=== PATIENT | male | born 1990 | race African-American/Black ===

== ENCOUNTER 2020-07-29 14:49 | Emergency (ER) | payer OTHER ==
[2020-07-29] MEDS ORDERED: DUONEB 0.5-3 MG/3 ml Neb IH ONE ×2 (14:59→15:10)
[2020-07-29] MEDS ORDERED: solu-MEDROL 125 MG IV ONE (14:59)
[2020-07-29] MEDS ORDERED: BABY ASPIRIN 81 MG CHEW PO ONE (15:00)
[2020-07-29 15:15] LABS: Absolute Neutrophil Ct (ANC) 3.66 (1.4-6.9); BASOPHIL % 0.4 % (0.0-0.4); Basophil (Absolute #) 0.02 (0-0.4); Eosinophil % 1.1 % (0.00-5.0); Eosinophil (Absolute #) 0.05 (0-0.5); Hematocrit 39.7 % (42-50); Hemoglobin 13.6 gm/dl (12.5-18.0); Lymphocytes % 13.1 % (24.0-44.0); Mean Cell Volume 91.3 fl (78-100); Mean Corpuscular Hemoglobin 31.3 pg (26-32); Mean Corpuscular Hgb Concent. 34.3 g/dl (32-36); Mean Platelet Volume 11.6 fl (7.5-11.0); Monocyte (Absolute #) 0.26 (0.0-1.3); Monocytes % 5.7 % (0.0-12.0); Neutrophil % 79.7 % (36.0-66.0); Platelet Count 89 K/mm3 (150-450); Red Blood Count 4.35 M/mm3 (4.1-5.6); Red Cell Distribution Width 13.1 % (11.5-14.0); White Blood Count 4.6 K/mm3 (4.0-10.5)
[2020-07-29] MEDS ORDERED: BABY ASPIRIN 81 MG CHEW ONE (15:20)
[2020-07-29] MEDS ORDERED: solu-MEDROL 125 MG ONE (15:20)
--- NOTE | 2020-07-29 15:24 | XRAY ---
Indication: Chest pain. Comparison: None Portable apical lordotic chest demonstrates normal heart, lungs, and bony thorax.
[2020-07-29 15:36] LABS: ALBUMIN 3.8 g/dL (3.5-5.0); ALKALINE PHOSPHATASE 48 U/L (38-126); ANION GAP 11.6 MEQ/L (5-15); BLOOD UREA NITROGEN 5 mg/dL (9-20); CHLORIDE 102 mmol/L (98-107); Calcium 8.8 mg/dL (8.4-10.2); Carbon Dioxide 27 mmol/L (22-30); Creatinine 1 0.94 mg/dL (0.66-1.25); EST GLOMERULAR FILTRATION RATE > 60.0 ML/MIN; Glucose 85 mg/dL (74-106); NT PRO BNP 52.5 pg/mL (0-450); Potassium 3.2 mmol/L (3.5-5.1); SGOT/AST 36 U/L (17-59); SGPT/ALT 17 U/L (0-50); SODIUM 138 mmol/L (137-145); Total Protein 6.8 g/dL (6.3-8.2)
--- NOTE | 2020-07-29 15:38 | ERPHSYRPT ---
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 no edema noted , chest clear. Physician History: 30 years old healthy male presented in the ER with chief complaint of substernal chest tightness and pressure since yesterday. 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 Patient reports continuous pain since last night and is progressively worsening and hurts to take a deep breath especially in the center. No shortness of breath. No fever chills or cough reported. No history of CAD or chest pain in the past. Timing/Duration: day(s) (1), gradual onset, worse Activities at Onset: rest Quality: fullness, tightness Location: substernal Chest Pain Radiation: no radiation Severity of Pain-Max: moderate Severity of Pain-Current: moderate Modifying Factors: Improves With: other (dust) Associated Symptoms: No shortness of breath, No cough Prior Chest Pain/Cardiac Workup: no prior chest pain Nitro Today/Relief: no nitro taken today Aspirin Treatment Today: no aspirin today Allergies/Adverse Reactions: No Known Drug Allergies Allergy (Unverified 07/29/20 14:59) Hx Influenza Vaccination/Date Given: No Hx Pneumococcal Vaccination/Date Given: No Immunizations Up to Date: No Travel Risk - International Travel Have you traveled outside of the country in past 3 weeks: No - Coronavirus Screening Are you exhibiting any of the following symptoms?: No Close contact with a COVID-19 positive Pt in past 14-21 Days: No - Review of Systems Constitutional: No Symptoms Eyes: No Symptoms Ears, Nose, & Throat: No Symptoms Respiratory: No Symptoms Cardiac: Chest Pain Abdominal/Gastrointestinal: No Symptoms Genitourinary Symptoms: No Symptoms Musculoskeletal: No Symptoms Skin: No Symptoms Neurological: No Symptoms Psychological: No Symptoms Endocrine: No Symptoms Hematologic/Lymphatic: No Symptoms Immunological/Allergic: No Symptoms - Past Medical History Pertinent Past Medical History: No - Past Surgical History Past Surgical History: No - Social History Smoking Status: Current every day smoker Exposure to second hand smoke: Yes Drug Use: none Patient Lives Alone: No - Nursing Vital Signs Nursing Vital Signs: Initial Vital Signs Temperature 99.1 F 07/29/20 14:51 Pulse Rate 86 07/29/20 14:51 Respiratory Rate 18 07/29/20 14:51 Blood Pressure 139/83 07/29/20 14:51 O2 Sat by Pulse Oximetry 99 07/29/20 14:51 Pain Scale Pain Intensity 7 - Physical Exam General Appearance: no apparent distress, alert Eye Exam: PERRL/EOMI Ears, Nose, Throat Exam: normal ENT inspection, TMs normal, pharynx normal Neck Exam: normal inspection, non-tender, supple, full range of motion Respiratory Exam: normal breath sounds, wheezing, No chest tenderness, No respiratory distress, No crackles/rales Cardiovascular Exam: regular rate/rhythm, normal heart sounds Gastrointestinal/Abdomen Exam: soft, normal bowel sounds Back Exam: normal inspection, normal range of motion Extremity Exam: normal inspection, normal range of motion, No yelena's sign Neurologic Exam: alert, oriented x 3, cooperative Skin Exam: normal color SpO2 Interpretation: normal SpO2: 99 O2 Delivery: Room Air - Course EKG Interpreted by Me: RATE (90), Sinus Rhythm, NORMAL AXIS, NORMAL INTERVALS, Non-specific ST Changes, Other (Early repolarization) Ordered Tests: Active Orders 24 hr Category Date Time Status [facility] Professional STAT Care 07/29/20 14:59 Active EKG-ER Only STAT Care 07/29/20 14:59 Active IV Insertion STAT Care 07/29/20 14:59 Active Oxygen-ED Only Nasal Cannula 2 lpm Care 07/29/20 14:59 Active CHEST 1 VIEW (PORTABLE) Stat Exams 07/29/20 14:59 Completed CHEST WITH CONTRAST [CT] Stat Exams 07/29/20 16:09 Completed CBC W DIFF Stat Lab 07/29/20 15:00 Completed CMP Stat Lab 07/29/20 15:00 Completed D-DIMER QUANTITATIVE Stat Lab 07/29/20 15:46 Completed NT PRO BNP Stat Lab 07/29/20 15:00 Completed TROPONIN Q3H Lab 07/29/20 15:00 Completed TROPONIN Q3H Lab 07/29/20 17:46 Received TROPONIN Q3H Lab 07/29/20 21:00 Ordered TROPONIN Q3H Lab 07/30/20 00:00 Ordered TROPONIN Q3H Lab 07/30/20 03:00 Ordered Respiratory Therapy Assessment DAILY RT 07/29/20 15:40 Completed Medication Summary Discontinued Medications Generic Name Dose Route Start Last Admin Trade Name Tasha PRN Reason Stop Dose Admin Albuterol/Ipratropium 3 ml 07/29/20 14:59 07/29/20 15:10 Duoneb 0.5-3 Mg/3 Ml Neb IH 07/29/20 15:00 3 ml STAT ONE Administration Albuterol/Ipratropium Confirm 07/29/20 15:10 Duoneb 0.5-3 Mg/3 Ml Neb Administered 07/29/20 15:11 Dose 3 ml IH .STK-MED ONE Aspirin 324 mg 07/29/20 15:00 07/29/20 15:21 Baby Aspirin 81 Mg Chew PO 07/29/20 15:01 324 mg STAT ONE Administration Aspirin Confirm 07/29/20 15:20 Baby Aspirin 81 Mg Chew Administered 07/29/20 15:21 Dose 324 mg .ROUTE .STK-MED ONE Methylprednisolone Sodium Succinate 125 mg 07/29/20 14:59 07/29/20 15:21 Solu-Medrol 125 Mg IV 07/29/20 15:00 125 mg STAT ONE Administration Methylprednisolone Sodium Succinate Confirm 07/29/20 15:20 Solu-Medrol 125 Mg Administered 07/29/20 15:21 Dose 125 mg .ROUTE .STK-MED ONE Lab/Rad Data: Laboratory Result Diagrams 07/29/20 15:00 07/29/20 15:00 Laboratory Results 07/29/20 07/29/20 07/29/20 Range/Units 15:46 15:00 15:00 WBC (4.0-10.5) K/mm3 RBC (4.1-5.6) M/mm3 Hgb (12.5-18.0) gm/dl Hct (42-50) % MCV (78-100) fl MCH (26-32) pg MCHC (32-36) g/dl RDW (11.5-14.0) % Plt Count (150-450) K/mm3 MPV (7.5-11.0) fl Gran % (36.0-66.0) % Eos # (Auto) (0-0.5) Absolute Lymphs (auto) (1.0-4.6) Absolute Monos (auto) (0.0-1.3) Lymphocytes % (24.0-44.0) % Monocytes % (0.0-12.0) % Eosinophils % (0.00-5.0) % Basophils % (0.0-0.4) % Absolute Granulocytes (1.4-6.9) Basophils # (0-0.4) D-Dimer 616 H* (215-500) ng/mL Sodium 138 (137-145) mmol/L Potassium 3.2 L (3.5-5.1) mmol/L Chloride 102 (98-107) mmol/L Carbon Dioxide 27 (22-30) mmol/L Anion Gap 11.6 (5-15) MEQ/L BUN 5 L (9-20) mg/dL Creatinine 0.94 (0.66-1.25) mg/dL Estimated GFR > 60.0 ML/MIN Glucose 85 (74-106) mg/dL Calcium 8.8 (8.4-10.2) mg/dL Total Bilirubin 1.30 (0.2-1.3) mg/dL AST 36 (17-59) U/L ALT 17 (0-50) U/L Alkaline Phosphatase 48 (38-126) U/L Troponin I < 0.012 (0.000-0.034) ng/mL NT-Pro-B Natriuret Pep 52.5 (0-450) pg/mL Serum Total Protein 6.8 (6.3-8.2) g/dL Albumin 3.8 (3.5-5.0) g/dL Slides for Path Review 07/29/20 Range/Units 15:00 WBC 4.6 (4.0-10.5) K/mm3 RBC 4.35 (4.1-5.6) M/mm3 Hgb 13.6 (12.5-18.0) gm/dl Hct 39.7 L (42-50) % MCV 91.3 (78-100) fl MCH 31.3 (26-32) pg MCHC 34.3 (32-36) g/dl RDW 13.1 (11.5-14.0) % Plt Count 89 L (150-450) K/mm3 MPV 11.6 H (7.5-11.0) fl Gran % 79.7 H (36.0-66.0) % Eos # (Auto) 0.05 (0-0.5) Absolute Lymphs (auto) 0.60 L (1.0-4.6) Absolute Monos (auto) 0.26 (0.0-1.3) Lymphocytes % 13.1 L (24.0-44.0) % Monocytes % 5.7 (0.0-12.0) % Eosinophils % 1.1 (0.00-5.0) % Basophils % 0.4 (0.0-0.4) % Absolute Granulocytes 3.66 (1.4-6.9) Basophils # 0.02 (0-0.4) D-Dimer (215-500) ng/mL Sodium (137-145) mmol/L Potassium (3.5-5.1) mmol/L Chloride (98-107) mmol/L Carbon Dioxide (22-30) mmol/L Anion Gap (5-15) MEQ/L BUN (9-20) mg/dL Creatinine (0.66-1.25) mg/dL Estimated GFR ML/MIN Glucose (74-106) mg/dL Calcium (8.4-10.2) mg/dL Total Bilirubin (0.2-1.3) mg/dL AST (17-59) U/L ALT (0-50) U/L Alkaline Phosphatase (38-126) U/L Troponin I (0.000-0.034) ng/mL NT-Pro-B Natriuret Pep (0-450) pg/mL Serum Total Protein (6.3-8.2) g/dL Albumin (3.5-5.0) g/dL Slides for Path Review - Progress Progress: improved, re-examined Air Movement: good Progress Note: 07/29/20 17:55 Ruled out acute coronary syndrome, pneumonia, pneumothorax, pulmonary embolism, dissection. Patient is given breathing treatment and morphine along with Solu- Medrol, on reevaluation feeling better. I believe patient is having bronchospasm from recent exposure to dust. I would continue with short course of steroid and albuterol inhaler to go home and outpatient follow-up recommended. Low heart score, do not think patient needs to be admitted and needs further evaluation at this point and is stable for discharge. Blood Culture(s) Obtained: No Antibiotics given: No Counseled pt/family regarding: lab results, diagnosis, need for follow-up, rad results - Departure Departure Disposition: Home Clinical Impression: Bronchospasm, acute Condition: Stable Critical Care Time: No Referrals: DOCTOR,NO FAMILY [Primary Care Provider] - NIKUNJ CORDOVA [ACTIVE STAFF] - Follow Up with PCP/3 days Instructions: Chest Pain (DC), Asthma, Adult (DC) Additional Instructions: Stay away from dust. Use mask all the time. Use inhaler as needed. Follow-up with primary care for reevaluation. Return to ER for any worsening bronchospasm/difficulty breathing/coughing/chest pain etc. Prescriptions: Prednisone 20 mg [Deltasone 20 mg] 60 mg PO DAILY 5 Days #15 tablet Albuterol 8 gm Mdi Hfa [Ventolin Hfa MDI] 8 gm IH Q4H #1 [email or web address]
--- NOTE | 2020-07-29 17:16 | XRAY ---
Indication: Chest pain, congestion, and elevated d-dimer. Multiple contiguous axial images obtained through the chest using 100 cc Isovue 370 contrast and PE protocol. Comparison: None There is good opacification of the pulmonary arteries to include the lobar and segmental branches. No pulmonary embolus. Heart is not enlarged. Aorta is normal in course and caliber. No pathologic mediastinal/hilar lymphadenopathy. Lungs demonstrates minimal bilateral dependent atelectasis. No suspicious pulmonary mass, infiltrate, or effusion. Bony thorax intact. Limited upper abdomen including adrenal glands are unremarkable. Impression: Negative pulmonary embolus. No acute cardiopulmonary abnormalities.
[2020-07-29 18:06] VITALS: BP 117/75; PULSE 77; O2SAT 98
[2020-07-29] MEDS ORDERED: Motrin 100 MG/5 ML PO ONE (18:07)
== END 2020-07-29 18:36 | disposition home or self-care (01) ==
LOC: ED 14:49
DX: J98.01 Acute bronchospasm (principal); R07.9 Chest pain, unspecified
CPT/HCPCS: 36000; 36415; 71045; 71260; 80053; 83880; 84484; 85025; 85379; 93005; 93041; 94640; 96374; 99284; J2930; A9270-GY